=== PATIENT | female | born 1985 | race Caucasian/White ===

== ENCOUNTER 2017-10-04 07:29 | Emergency (ER) | payer OTHER ==
[2017-10-04] MEDS: methylPREDNISolone INJ 125 MG/2 ML VIAL (J2930) IV (08:04)
[2017-10-04] MEDS: diphenhydrAMINE INJ 50MG/ML VIAL (J1200) IV (08:04)
[2017-10-04] MEDS: METOCLOPRAMIDE INJ 10MG/2ML VIAL (J2765) IV (08:04)
[2017-10-04] MEDS: NS 500 ML IV (08:04)
[2017-10-04] MEDS: diazePAM 2 MG TAB PO (08:54)
== END 2017-10-04 09:36 | disposition home or self-care (01) ==
LOC: M ED 07:29
DX: G43.909 Migraine, unspecified, not intractable, without status migrainosus (principal); Z79.3 Long term (current) use of hormonal contraceptives
CPT/HCPCS: J1200

== ENCOUNTER 2017-12-30 11:15 | Emergency (ER) | payer OTHER ==
[2017-12-30] MEDS ORDERED: RABIES IMMUNE GLOBULIN 1500 INTERNATIONAL UNITS/10 ML VIAL (90375) IM (12:15)
[2017-12-30] MEDS: RABIES IMMUNE GLOBULIN 1500 INTERNATIONAL UNITS/10 ML VIAL (90375) IM (13:52)
[2017-12-30] MEDS: RABIES VACCINE HUMAN 2.5 INTERNATIONAL UNITS/ML VIAL (90675) IM (13:55)
== END 2017-12-30 14:49 | disposition home or self-care (01) ==
LOC: M ED 11:15
DX: Z20.3 Contact with and (suspected) exposure to rabies (principal); M54.5 Low back pain; Z88.8 Allergy status to other drugs, medicaments and biological substances; Z79.899 Other long term (current) drug therapy
CPT/HCPCS: 90675

== ENCOUNTER 2018-01-02 14:39 | Emergency (ER) | payer OTHER ==
[2018-01-02] MEDS: RABIES VACCINE HUMAN 2.5 INTERNATIONAL UNITS/ML VIAL (90675) IM (17:16)
== END 2018-01-02 17:44 | disposition home or self-care (01) ==
LOC: M ED 14:39
DX: Z20.3 Contact with and (suspected) exposure to rabies (principal); Z23 Encounter for immunization; R51 Headache; Z79.899 Other long term (current) drug therapy; Z88.8 Allergy status to other drugs, medicaments and biological substances
CPT/HCPCS: 90675

== ENCOUNTER 2018-01-06 08:55 | Emergency (ER) | payer OTHER ==
[2018-01-06] MEDS: RABIES VACCINE HUMAN 2.5 INTERNATIONAL UNITS/ML VIAL (90675) IM (10:05)
== END 2018-01-06 10:22 | disposition home or self-care (01) ==
LOC: M ED 08:55
DX: Z20.3 Contact with and (suspected) exposure to rabies (principal); Z88.8 Allergy status to other drugs, medicaments and biological substances; Z79.899 Other long term (current) drug therapy
CPT/HCPCS: 90675

== ENCOUNTER 2018-01-13 10:22 | Emergency (ER) | payer OTHER ==
[2018-01-13] MEDS: RABIES VACCINE HUMAN 2.5 INTERNATIONAL UNITS/ML VIAL (90675) IM (11:29)
== END 2018-01-13 12:18 | disposition home or self-care (01) ==
LOC: M ED 10:22
DX: Z20.3 Contact with and (suspected) exposure to rabies (principal)
CPT/HCPCS: 90675

== ENCOUNTER 2019-01-21 14:03 | Emergency (ER) | payer OTHER ==
[~2019-01-21] VITALS: Ht 170.2 cm; Wt 70.3 kg
[~2019-01-21 14:03] MED LIST: DEXTROAMP-AMPHETAMIN AD; DULO1CAP6 PO; NEXP1IMP SC; REGL10TA6 PO
[2019-01-21] MEDS ORDERED: RIZA10TA4 (14:11)
[2019-01-21] MEDS ORDERED: PSEU30TA85 PO (14:11)
[2019-01-21] MEDS ORDERED: AMPH15CA PO (14:11)
[2019-01-21 15:32] LABS: BASO # 0.1 10^3/uL (0.0-0.2); BASO % 0.8 % (0.0-1.0); EOS # 0.1 10^3/uL (0.0-0.5); EOS % 1.5 % (0.0-3.0); HEMATOCRIT 36.7 % (36.0-47.0); LYMPH # 2.1 10^3/uL (1.5-5.0); MEAN CORPUSCULAR HEMOGLOBIN 28.4 pg (27.0-33.0); MEAN CORPUSCULAR HGB CONC 32.7 g/dl (32.0-36.5); MEAN CORPUSCULAR VOLUME 86.8 fl (80.0-96.0); MONO # 0.4 10^3/uL (0.0-0.8); MONO % 6.1 % (0.0-5.0); NEUTROPHILS # 3.9 10^3/uL (1.5-8.5); NEUTROPHILS % 59.4 % (36.0-66.0); PLATELET COUNT, AUTOMATED 256 10^3/uL (150-450); RED BLOOD COUNT 4.23 10^6/uL (4.00-5.40); WHITE BLOOD COUNT 6.6 10^3/uL (4.0-10.0)
[2019-01-21 15:42] LABS: INR 1.08; PROTHROMBIN TIME 13.7 SECONDS (11.8-14.0)
[2019-01-21 16:01] LABS: ALBUMIN 4.3 GM/DL (3.2-5.2); ALT/SGPT 16 U/L (12-78); BILIRUBIN,DIRECT 0.1 MG/DL (0.0-0.2); BILIRUBIN,TOTAL 0.4 MG/DL (0.2-1.0); BLOOD UREA NITROGEN 8 MG/DL (7-18); CALCIUM LEVEL 8.7 MG/DL (8.5-10.1); CARBON DIOXIDE LEVEL 27 MEQ/L (21-32); CHLORIDE LEVEL 107 MEQ/L (98-107); CREATININE FOR GFR 0.95 MG/DL (0.55-1.30); GLOMERULAR FILTRATION RATE > 60.0 (>60); GLUCOSE, FASTING 77 MG/DL (70-100); POTASSIUM SERUM 3.8 MEQ/L (3.5-5.1); SODIUM LEVEL 141 MEQ/L (136-145); TOTAL PROTEIN 7.3 GM/DL (6.4-8.2)
--- NOTE | 2019-01-21 17:44 | REPVR ---
EXAM: MR Head Without Contrast EXAM DATE/TIME: 01/21/2019 4:04 PM CLINICAL HISTORY: 33 years old, female; Other: Dizzy, sinus headache; Patient HX: PT states extreme dizziness just today along with chills and a sinus headache; Additional info: R/O posterior circulation stenosis/occlusion TECHNIQUE: Imaging protocol: MR of the head without contrast. COMPARISON: No relevant prior studies available. FINDINGS: No abnormal restriction of diffusion to indicate acute CVA. Midline structures and cerebellar tonsillar position appear normal. Ventricles, cisterns and sulci are symmetric and normal for age. No intracranial mass, midline shift or abnormal extra-axial fluid. No acute intracranial hemorrhage. Solitary left perisylvian punctate focus of white matter signal on FLAIR and T2 sequences. Optic chiasm and pituitary infundibulum appear normal. Normal vascular flow voids in major intracranial arteries and dural venous sinuses. Mild circumferential mucosal thickening in the maxillary sinuses. Mastoid air cells are normally aerated. Optic globes and orbits are unremarkable. IMPRESSION: Unremarkable noncontrast MRI of the brain. Electronically signed by: Conner Lopez On 01/21/2019 17:44:25 PM
--- NOTE | 2019-01-21 17:45 | REPVR ---
EXAM: MR Angiogram Head Without Contrast, Arteries EXAM DATE/TIME: 01/21/2019 4:04 PM CLINICAL HISTORY: 33 years old, female; Dizziness and giddiness; Patient HX: PT states extreme dizziness just today along with chills and a sinus headache; Additional info: R/O posterior circulation stenosis/occlusion TECHNIQUE: Imaging protocol: MR angiogram head without contrast. Exam focused on the arteries. 3D rendering: MIP reconstructed images were created and reviewed. COMPARISON: No relevant prior studies available. FINDINGS: Anterior circulation: Normal flow signal and luminal caliber in the petrous, cavernous and supraclinoid internal carotid arteries. Normal appearance of the anterior cerebral artery branches and middle cerebral artery branches through the MCA trifurcations. No occlusion, high-grade focal stenosis or dissection. No aneurysm. Posterior circulation: Normal distal vertebral arteries, with patent normal caliber basilar artery, and normal superior cerebellar and posterior cerebral arteries. No occlusion, high-grade stenosis or aneurysm. IMPRESSION: Unremarkable MR angiogram of the [place] of [place] and intracranial vertebrobasilar system. CAROTID STENOSIS REFERENCE USING NASCET CRITERIA: % ICA stenosis = (1 - narrowest ICA diameter/diameter of distal cervical ICA) x 100. Mild - <50% stenosis. Moderate - 50-69% stenosis. Severe - 70-94% stenosis. Near occlusion - 95-99% stenosis. Occluded - 100% stenosis. Electronically signed by: Conner Lopez On 01/21/2019 17:45:17 PM
--- NOTE | 2019-01-21 17:46 | REPVR ---
EXAM: MR Angiography Neck Without Contrast EXAM DATE/TIME: 01/21/2019 4:15 PM CLINICAL HISTORY: 33 years old, female; Dizziness and giddiness and other: Sinus headache; Patient HX: PT states extreme dizziness just today along with chills and a sinus headache; Additional info: R/O posterior circulation stenosis/occlusion TECHNIQUE: Imaging protocol: Magnetic resonance angiography of the neck without contrast. 3D rendering: MIP reconstructed images were created and reviewed. COMPARISON: MRA BRAIN W/O CONTRAST 01/21/2019 3:41 PM FINDINGS: Bilateral common carotid arteries, carotid bulbs, internal carotids and proximal external carotid branches show normal symmetric luminal caliber and flow signal. No high-grade stenosis. No occlusion or dissection. Both vertebral arteries are patent to the level of the skull base. No dissection, or occlusion or focal stenosis. No abnormality of the great vessel origins from the aortic arch. IMPRESSION: Unremarkable MR angiogram of the neck. CAROTID STENOSIS REFERENCE USING NASCET CRITERIA: % ICA stenosis = (1 - narrowest ICA diameter/diameter of distal cervical ICA) x 100. Mild - <50% stenosis. Moderate - 50-69% stenosis. Severe - 70-94% stenosis. Near occlusion - 95-99% stenosis. Occluded - 100% stenosis. Electronically signed by: Conner Lopez On 01/21/2019 17:46:16 PM
[2019-01-21] MEDS ORDERED: ZITHTAB PO (17:56)
[2019-01-21] MEDS ORDERED: CLAR5TAB7 PO (17:56)
[2019-01-21 18:01] VITALS: BP 124/71
--- NOTE | 2019-01-21 19:04 | ECGEPIP ---
[facility] - ED Test Date: 2019-01-21 Pat Name: PATTI CAUSEY Department: Room: - Gender: Female Trim Mechanic: ivelisse : 1985 Requested By: Azucena Walls PA-C Order Number: [id number] Reading MD: Beto Burton Measurements Intervals Okay Rate: 87 P: 69 SC: 160 QRS: 65 QRSD: 106 T: 61 QT: 375 QTc: 454 Interpretive Statements SINUS RHYTHM POSSIBLE RIGHT VENTRICULAR CONDUCTION DELAY NONSPECIFIC T-WAVE ABNORMALITY NO PRIOR ECG FOR COMPARISON BORDERLINE PROLONGED QTC Electronically Signed on 01-21-2019 19:04:17 EDT by Beto Burton
== END 2019-01-21 18:13 | disposition home or self-care (01) ==
LOC: M ED 14:03
DX: R42 Dizziness and giddiness (principal); J01.90 Acute sinusitis, unspecified; J30.9 Allergic rhinitis, unspecified; Z87.820 Personal history of traumatic brain injury; G43.909 Migraine, unspecified, not intractable, without status migrainosus; M54.9 Dorsalgia, unspecified; Z79.899 Other long term (current) drug therapy; Z88.6 Allergy status to analgesic agent

== ENCOUNTER 2019-08-16 00:30 | Emergency (ER) | payer OTHER ==
[~2019-08-16] VITALS: Ht 170.2 cm; Wt 76.7 kg
[~2019-08-16 00:30] MED LIST changes: +AMPH1CAP15 PO; +CLAR5TAB7 PO; +PSEU30TA85 PO; +RIZA10TA58; +ZITHTAB PO
[2019-08-16 01:45] VITALS: BP 126/71
--- NOTE | 2019-08-16 08:30 | REP ---
RIGHT FOREARM: FOUR VIEWS. HISTORY: Fall on outstretched arm. Tender over radius. TECHNIQUE: Three views of the right forearm are supplemented by a navicular view at the wrist. FINDINGS: These four views demonstrate no evidence of fracture or subluxation. Bones, joints, and soft tissues are radiographically unremarkable. If wrist injury is clinically suspected. A dedicated wrist series should be considered. IMPRESSION: No fracture seen on these views. Electronically Signed by Alli Escalera MD 08/16/2019 10:59 A
== END 2019-08-16 01:49 | disposition home or self-care (01) ==
LOC: M ED 00:30
DX: S62.101A Fracture of unspecified carpal bone, right wrist, initial encounter for closed fracture (principal); W18.49XA Other slipping, tripping and stumbling without falling, initial encounter; Y92.099 Unspecified place in other non-institutional residence as the place of occurrence of the external cause; Y93.9 Activity, unspecified; Y99.9 Unspecified external cause status; G43.909 Migraine, unspecified, not intractable, without status migrainosus; F41.9 Anxiety disorder, unspecified; F90.9 Attention-deficit hyperactivity disorder, unspecified type; Z79.899 Other long term (current) drug therapy; Z88.6 Allergy status to analgesic agent

== ENCOUNTER 2019-08-21 21:10 | Emergency (ER) | payer OTHER | END 2019-08-21 23:16 | disposition left against medical advice (07) | LOC: M ED 21:10 | DX: Z77.098 Contact with and (suspected) exposure to other hazardous, chiefly nonmedicinal, chemicals (principal); Z53.21 Procedure and treatment not carried out due to patient leaving prior to being seen by health care provider ==

== ENCOUNTER 2020-12-05 17:24 | Emergency (ER) | payer OTHER ==
[~2020-12-05] VITALS: Ht 170.2 cm; Wt 75.0 kg
[2020-12-05] MEDS ORDERED: CLAR10CA3 PO (17:33)
[2020-12-05] MEDS ORDERED: TRAM50TA2 PO (17:33)
[2020-12-05] MEDS ORDERED: BENA25CA4 PO (17:33)
[2020-12-05] MEDS ORDERED: diphenhydrAMINE 50MG/ML VIAL (J1200) IM STA (19:01)
[2020-12-05] MEDS ORDERED: dexameTHASONE 20MG/5ML VIAL (J1100 PER 1MG) IM ONE (19:05)
[2020-12-05] MEDS ORDERED: FAMOTIDINE 20 MG TAB PO ONE (19:05)
[2020-12-05] MEDS ORDERED: PEPC1TAB5 PO (21:24)
[2020-12-05] MEDS ORDERED: EPIP0.3I2 IM (21:32)
[2020-12-05 21:51] VITALS: BP 121/75
[2020-12-06] MEDS ORDERED: PRED10TA2 PO (12:13)
== END 2020-12-05 21:58 | disposition home or self-care (01) ==
LOC: M ED 17:24
DX: T63.441A Toxic effect of venom of bees, accidental (unintentional), initial encounter (principal); Y92.9 Unspecified place or not applicable; Y93.9 Activity, unspecified; Z88.6 Allergy status to analgesic agent
CPT/HCPCS: 93041; 94760; 96372; 99284; J1100; J1200

== ENCOUNTER → 2021-08-12 | Outpatient (REF) | payer OTHER ==
[~2021-08-12] MED LIST changes: +BENA25CA4 PO; +CLAR10CA3 PO; +EPIP0.3I2 IM; +PEPC1TAB5 PO; +PRED10TA2 PO; -PSEU30TA85 PO; +PSEU30TA86 PO; +TRAM50TA2 PO
[2021-08-12 16:46] LABS: HEMATOCRIT 40.4 % (36.0-47.0); HEMOGLOBIN 13.2 g/dl (12.0-15.5); MEAN CORPUSCULAR HEMOGLOBIN 28.1 pg (27.0-33.0); MEAN CORPUSCULAR HGB CONC 32.7 g/dl (32.0-36.5); PLATELET COUNT, AUTOMATED 287 10^3/uL (150-450); WHITE BLOOD COUNT 8.9 10^3/uL (4.0-10.0)
[2021-08-12 17:59] LABS: HCG, SERUM QUANTITATIVE 30112 MIU/ML; HEPATITIS B SURFACE ANTIGEN NEGATIVE (NEGATIVE); HEPATITIS C VIRUS ABY INDEX 0.2 INDEX (<0.8); HIV 1&2 SCREEN CENTAUR NEGATIVE (NEGATIVE)
== END ==
LOC: M LAB REF 16:09
PROVIDERS: ATTEND Obstetrics & Gynecology
DX: O36.80X0 Pregnancy with inconclusive fetal viability, not applicable or unspecified (principal); Z32.01 Encounter for pregnancy test, result positive